=== PATIENT | female | born 1945 | race Caucasian/White ===

== ENCOUNTER 2018-04-06 09:25 | Outpatient (CLI) | payer MEDICARE, OTHER ==
[~2018-04-06 09:25] MED LIST: OXYC-134 PO
[2018-04-06 09:46] VITALS: BP 137/72
== END 2018-04-06 10:26 | disposition home or self-care (01) ==
LOC: ORTHO 09:25
PROVIDERS: ATTEND Nurse Practitioner Family
DX: S92.315A Nondisplaced fracture of first metatarsal bone, left foot, initial encounter for closed fracture (principal); S92.215A Nondisplaced fracture of cuboid bone of left foot, initial encounter for closed fracture; S92.002A Unspecified fracture of left calcaneus, initial encounter for closed fracture; Z88.0 Allergy status to penicillin; E78.00 Pure hypercholesterolemia, unspecified; E11.42 Type 2 diabetes mellitus with diabetic polyneuropathy; M81.0 Age-related osteoporosis without current pathological fracture; X58.XXXA Exposure to other specified factors, initial encounter; Y93.89 Activity, other specified; Y92.89 Other specified places as the place of occurrence of the external cause; Y99.8 Other external cause status
CPT/HCPCS: L4360

== ENCOUNTER 2018-04-20 09:05 | Outpatient (CLI) | payer MEDICARE, OTHER ==
[2018-04-20 09:14] VITALS: BP 151/76
== END 2018-04-20 09:45 | disposition home or self-care (01) ==
LOC: ORTHO 09:05
PROVIDERS: ATTEND Nurse Practitioner Family
DX: S92.325G Nondisplaced fracture of second metatarsal bone, left foot, subsequent encounter for fracture with delayed healing (principal); S92.215G Nondisplaced fracture of cuboid bone of left foot, subsequent encounter for fracture with delayed healing; S92.002G Unspecified fracture of left calcaneus, subsequent encounter for fracture with delayed healing; E78.00 Pure hypercholesterolemia, unspecified; E11.9 Type 2 diabetes mellitus without complications; Z88.0 Allergy status to penicillin; X58.XXXD Exposure to other specified factors, subsequent encounter
CPT/HCPCS: 73630; 73650; 99213

== ENCOUNTER 2018-05-12 13:32 | Outpatient (CLI) | payer MEDICARE, OTHER ==
[2018-05-12 13:39] VITALS: BP 147/74
== END 2018-05-12 14:45 | disposition home or self-care (01) ==
LOC: ORTHO 13:32
PROVIDERS: ATTEND Nurse Practitioner Family
DX: S92.335G Nondisplaced fracture of third metatarsal bone, left foot, subsequent encounter for fracture with delayed healing (principal); S92.325G Nondisplaced fracture of second metatarsal bone, left foot, subsequent encounter for fracture with delayed healing; S92.215G Nondisplaced fracture of cuboid bone of left foot, subsequent encounter for fracture with delayed healing; S92.002G Unspecified fracture of left calcaneus, subsequent encounter for fracture with delayed healing; E78.00 Pure hypercholesterolemia, unspecified; E11.610 Type 2 diabetes mellitus with diabetic neuropathic arthropathy; E11.42 Type 2 diabetes mellitus with diabetic polyneuropathy; M85.80 Other specified disorders of bone density and structure, unspecified site; M77.32 Calcaneal spur, left foot; Z88.0 Allergy status to penicillin; Z79.899 Other long term (current) drug therapy; Z79.84 Long term (current) use of oral hypoglycemic drugs; X58.XXXD Exposure to other specified factors, subsequent encounter
CPT/HCPCS: 73630

== ENCOUNTER → 2018-05-27 | Outpatient (CLI) | payer MEDICARE, OTHER ==
[2018-05-27 11:24] VITALS: BP 147/58
== END | disposition home or self-care (01) ==
LOC: ORTHO 11:25
PROVIDERS: ATTEND Nurse Practitioner Family
DX: S92.335D Nondisplaced fracture of third metatarsal bone, left foot, subsequent encounter for fracture with routine healing (principal); S92.325D Nondisplaced fracture of second metatarsal bone, left foot, subsequent encounter for fracture with routine healing; E78.00 Pure hypercholesterolemia, unspecified; E11.9 Type 2 diabetes mellitus without complications; Z88.0 Allergy status to penicillin; Z79.899 Other long term (current) drug therapy; Z98.84 Bariatric surgery status; X58.XXXD Exposure to other specified factors, subsequent encounter
CPT/HCPCS: 73630; 99213

== ENCOUNTER 2018-11-22 04:07 | Outpatient (CLI) | payer MEDICARE, OTHER | END 2018-11-22 23:59 | disposition home or self-care (01) | LOC: DIABETIC 04:07 | PROVIDERS: ATTEND Nurse Practitioner Family | DX: E11.65 Type 2 diabetes mellitus with hyperglycemia (principal); E11.40 Type 2 diabetes mellitus with diabetic neuropathy, unspecified; E11.21 Type 2 diabetes mellitus with diabetic nephropathy; E11.319 Type 2 diabetes mellitus with unspecified diabetic retinopathy without macular edema; E11.43 Type 2 diabetes mellitus with diabetic autonomic (poly)neuropathy; K31.84 Gastroparesis; I10 Essential (primary) hypertension; E78.5 Hyperlipidemia, unspecified; I67.9 Cerebrovascular disease, unspecified; Z88.0 Allergy status to penicillin; Z79.84 Long term (current) use of oral hypoglycemic drugs | CPT/HCPCS: G0108 ==

== ENCOUNTER 2019-01-03 00:51 | Outpatient (CLI) | payer MEDICARE, OTHER | END 2019-01-03 23:59 | disposition home or self-care (01) | LOC: DIABETIC 00:51 | PROVIDERS: ATTEND Nurse Practitioner Family | DX: E11.65 Type 2 diabetes mellitus with hyperglycemia (principal); E11.21 Type 2 diabetes mellitus with diabetic nephropathy; E11.40 Type 2 diabetes mellitus with diabetic neuropathy, unspecified; E11.319 Type 2 diabetes mellitus with unspecified diabetic retinopathy without macular edema; E11.43 Type 2 diabetes mellitus with diabetic autonomic (poly)neuropathy; K31.84 Gastroparesis; I67.9 Cerebrovascular disease, unspecified; I10 Essential (primary) hypertension; E78.5 Hyperlipidemia, unspecified | CPT/HCPCS: G0108 ==

== ENCOUNTER 2019-04-19 04:32 | Outpatient (CLI) | payer MEDICARE, OTHER | END 2019-04-19 23:59 | disposition home or self-care (01) | LOC: DIABETIC 04:32 | PROVIDERS: ATTEND Nurse Practitioner Family | DX: E11.65 Type 2 diabetes mellitus with hyperglycemia (principal); E11.40 Type 2 diabetes mellitus with diabetic neuropathy, unspecified; E11.21 Type 2 diabetes mellitus with diabetic nephropathy; E11.319 Type 2 diabetes mellitus with unspecified diabetic retinopathy without macular edema; E11.59 Type 2 diabetes mellitus with other circulatory complications; E11.43 Type 2 diabetes mellitus with diabetic autonomic (poly)neuropathy; K31.84 Gastroparesis; I10 Essential (primary) hypertension; E78.5 Hyperlipidemia, unspecified; Z79.84 Long term (current) use of oral hypoglycemic drugs; Z79.899 Other long term (current) drug therapy; Z88.0 Allergy status to penicillin | CPT/HCPCS: G0108 ==

== ENCOUNTER 2019-08-25 00:58 | Outpatient (CLI) | payer MEDICARE, OTHER | END 2019-08-25 23:59 | disposition home or self-care (01) | LOC: DIABETIC 00:58 | PROVIDERS: ATTEND Nurse Practitioner Family | DX: E11.65 Type 2 diabetes mellitus with hyperglycemia (principal); E11.319 Type 2 diabetes mellitus with unspecified diabetic retinopathy without macular edema; E11.40 Type 2 diabetes mellitus with diabetic neuropathy, unspecified; E11.21 Type 2 diabetes mellitus with diabetic nephropathy; E11.59 Type 2 diabetes mellitus with other circulatory complications; E11.43 Type 2 diabetes mellitus with diabetic autonomic (poly)neuropathy; K31.84 Gastroparesis; Z79.84 Long term (current) use of oral hypoglycemic drugs; Z79.899 Other long term (current) drug therapy; Z88.0 Allergy status to penicillin | CPT/HCPCS: G0108 ==

== ENCOUNTER 2019-12-01 01:40 | Outpatient (CLI) | payer MEDICARE, OTHER | END 2019-12-01 23:59 | disposition home or self-care (01) | LOC: DIABETIC 01:40 | PROVIDERS: ATTEND Family Medicine | DX: E11.9 Type 2 diabetes mellitus without complications (principal) | CPT/HCPCS: G0108 ==

== ENCOUNTER 2025-09-03 15:17 | Inpatient (IN) | payer MEDICARE, BC ==
[~2025-09-03] VITALS: Ht 167.6 cm; Wt 84.0 kg
[~2025-09-03 15:17] MED LIST changes: +ASCO500C18 PO; +CALC-331 PO; +CHOL50004 PO; +CYAN100019 PO; +LEVO750T68 PO; +LISI10TA27 PO; +MAGN400C PO; +METF-436 PO; +METH1CAP PO; +MULT-1085 PO; -OXYC-134 PO; +SERT-434 PO; +SIMV-342 PO; +[UNRECOGNIZED DRUG - CODE] PO
--- NOTE | 2025-09-03 15:41 | Physician Documentation ---
History of Present Illness ~ Chief Complaint: Mechanical Fall Stated Complaint: FALL Time Seen by MD: 15:28 Primary Medical Doctor: Scottie KEARNEY 79-year-old female, presenting with a fall She tells me that she tripped going up the steps. She did hit her head, but no loss of consciousness. She landed on her left leg, no reports severe pain in the left thigh. She is unable to move her leg or stand. She is not on blood thinners. She denies any neck pain, arm pain, or other associated injuries She does have numbness in her legs but states this is normal because she has neuropathy Tetanus within 5 Years?: No Medication Reconciliation Allergies: Coded Allergies: Penicillins (Unverified Allergy, Unknown, 05/11/18) Scheduled Ascorbic Acid (Vitamin C), 1 CAP PO DAILY, (Reported) Calcium Carbonate (Calcium), 1 TAB PO DAILY, (Reported) Cholecalciferol (Vitamin D3) (Vitamin D3), 1 CAP PO DAILY, (Reported) Cyanocobalamin (Vitamin B-12) (Vitamin B-12), 1 TAB PO DAILY, (Reported) Levofloxacin (Levofloxacin), 750 MG PO Q48H Lisinopril (Lisinopril), 1 TAB PO QPM, (Reported) Magnesium Oxide (Magnesium), 1 CAP PO DAILY, (Reported) Metformin Hcl (Metformin Hcl), 2 TAB PO Q12H, (Reported) Methyltetrahydrofolate Glucosa (Methylfolate), 400 MCG PO DAILY, (Reported) Multivitamin (Multi Vitamin Daily), 1 TAB PO DAILY, (Reported) Pyridoxine Hcl (Vitamin B-6), 1 TAB PO DAILY, (Reported) Sertraline HCl (Sertraline HCl), 1 TAB PO QPM, (Reported) Simvastatin (Zocor), 1 TAB PO QPM, (Reported) Past Medical History Past Medical History: High Cholesterol, Diabetes Past Surgical History: gastric bypass, orthopedic surgeries Alcohol Use: None Drug Use: none Lives with: Family Lives In: Home Occupation: retired Review of Systems Neurological: Denies: headache, dizziness Musculoskeletal: Reports: pain Physical Exam Vital Signs: Temperature: 97.6, Source: Temporal, Heart Rate: 68, Respiratory Rate: 15, BP: 145/62, Pulse Oximetry: 96, Weight: 84.000 Physical Exam General: This is an uncomfortable but very pleasant elderly woman HEENT: Atraumatic, no tenderness on palpation of the scalp, no hematoma or laceration, oropharynx is moist Neck: No midline tenderness on palpation of the C-spine Heart: Regular rate and rhythm, normal-appearing peripheral perfusion Lungs: normal work of breathing, normal oxygen saturation on room air Extremities: Warm and well-perfused No traumatic findings to the arms or right leg Left lower extremity: No shortening or rotation. The patient has severe pain with any movement of her femur including with hip rotation or flexion. She points to her proximal thigh. Mild generalized paresthesias to the left foot in his stocking-glove distribution. Normal-appearing perfusion Neuro: Alert and oriented Psychiatric: Calm and cooperative with exam Progress Results/Orders Results/Orders Orders - SANDRA SHORE MD Cbc/Diff (09/03/25 15:35) CMP (09/03/25 15:35) Pt Inr (09/03/25 15:35) Ct Head (09/03/25 15:35) Ct Pelvis (09/03/25 15:58) Page Hospitalist (09/03/25 16:20) Completed Orders - SANDRA SHORE MD Ct Head (09/03/25 15:35) Ondansetron Inj. (Zofran 4mg/2ml Vial) (09/03/25 15:40) Morphine 4mg/Ml Inj. (Morphine Inj.) (09/03/25 15:40) Ct Pelvis (09/03/25 15:58) Medications Received in ER Medications (Trade) Dose Ordered Sig/Sergey Route PRN Reason Start Time Stop Time Status Last Admin Dose Admin (Zofran 4mg/2ml vial) 4 mg ONCE ONCE IV 09/03/25 15:40 09/03/25 15:44 DC 09/03/25 15:46 4 MG (morphine inj.) 4 mg ONCE ONCE IV 09/03/25 15:40 09/03/25 15:41 DC 09/03/25 15:47 4 MG Vital Signs 09/03/25 09/03/25 09/03/25 15:20 15:28 15:47 Temp 97.6 Pulse 84 68 Resp 15 15 15 B/P (MAP) 137/83 145/62 (89) Pulse Ox 97 96 EKG/XRAY/CT/US/VASC/MRI CT : Impression I personally interpreted the CT scan, and this shows no acute hemorrhage in the head CT CT pelvis: I personally interpreted the CT scan, and this shows a left femoral neck hip fracture Consults/PCP Consults/PCP : Additional Comment Consult: I spoke to Dr. Alvarado, orthopedics, for evaluation and surgical intervention Consult: I spoke to the internal medicine service, for admission in the hospital Medical Decision Making Additional information obtaine: N/A Findings na Differential Dx:Considerations: Include: Closed head injury, Fracture(s), Contusion(s), Hematoma(s) Additional Comment The patient presents with a fall. She did hit her head but has no evidence of significant head injury. Her primary pain is in the left thigh. Her exam is concerning for a likely fracture. An IV was established and she was given pain and nausea medications. Head CT without hemorrhage. CT of the pelvis shows a hip fracture. Orthopedics team consulted. Preop labs were obtained. She will be admitted to the medicine service. Departure Impression: Primary Impression: Ground-level fall Additional Impressions: Closed head injury Closed left hip fracture Referrals: NO PRIMARY CARE PROVIDER (PCP) Signature Scribe Signature: na Attestation: SANDRA Burkett MD Sep 03, 2025 15:41
[2025-09-03] MEDS: ondansetron/PF 4mg/2ml inj IV ONE (15:46)
[2025-09-03] MEDS: morphine 4 MG/ML inj SYRINge IV ONE (15:47)
--- NOTE | 2025-09-03 16:19 | RADIOLOGY REPORT ---
CT CT HEAD INDICATION: fall, head inj EXAM DATE: 09/03/2025 03:50 PM COMPARISON: None RADIATION DOSE: CTDIvol: 51 mGy, DLP: 1030 mGy*cm PROCEDURE: CT scans of the head were obtained from the vertex to the skull base. Sagittal and coronal reconstructions were provided. All CT scans at this medical facility are performed using dose modulation techniques as appropriate to a performed exam including the following: Automated exposure control was utilized; adjustment of the MA and/or KV according to patient size; and use of iterative reconstruction technique. FINDINGS: There is sulcal and ventricular prominence. The brainshows normal morphology and elmore-white matter differentiation, without intracranial hemorrhage, extra-axial fluid collection, mass effect or acute large vessel infarct. The ventricles are normal in size. The basal cisterns are patent. The skull and visible facial bones are intact. The paranasal sinuses, mastoid air cells and middle ear cavities are well-aerated. The soft tissues of the scalp are unremarkable. IMPRESSION: No acute intracranial abnormality.
--- NOTE | 2025-09-03 16:32 | RADIOLOGY REPORT ---
History: fall, left hip/femur pain Comparison Study: None Technique: Multidetector spiral CT of the pelvis was performed from iliac crests to pubic symphysis. 100 cc of intravenous contrast was administered during this examination. Portal venous imaging was obtained. Axial, coronal and sagittal multiplanar reformats were performed by the technologist on a separate workstation. Radiation Dose : CT Dose: CTDI volume is 34 mGy. Dose-length product is 1355 mGy*cm Findings: Visualized bowel: Small bowel and colon are normal in caliber and distribution. The appendix is not visualized; however, no secondary findings of acute appendicitis identified. Moderate to large colonic stool burden. Ascites: Absent Lymphadenopathy: No pelvic or mesenteric lymphadenopathy. Pelvis Wall and Mesentery: Unremarkable. Vasculature: The visualized abdominal aorta is normal in size and caliber. Abdominal and pelvic vessels demonstrate normal enhancement. Pelvic Organs: Unremarkable Musculoskeletal: Mildly displaced acute traumatic fracture of the left intertrochanteric femur. Chronic deformities of the right superior pubic rami and right inferior pubic rami. Bladder: Unremarkable IMPRESSION: 1. Mildly displaced acute traumatic fracture of the left intertrochanteric femur. END IMPRESSION:
[2025-09-03 16:37] LABS: MEAN PLATELET VOLUME 8.4 FL (7.4-10.4); RED CELL DISTRIBUTION WIDTH 18.4 % (11.5-14.5)
[2025-09-03 16:39] LABS: INR 1.1 INR
[2025-09-03 16:43] LABS: CREATININE 1.19 MG/DL (0.40-0.90); TOTAL CARBON DIOXIDE 26.4 MMOL/L (24-32); eCRCL 35 ML/MIN; eGFR 44 ML/MIN
[2025-09-03] MEDS ORDERED: magnesium sulf-water 4G/100mL 100 ML IV PRN (17:10)
[2025-09-03] MEDS ORDERED: mag hydrox/Alum hydrox/simeth 30ml oral suspension PO PRN (17:10)
[2025-09-03] MEDS ORDERED: magnesium hydroxide 30ml (MOM) UD suspension PO PRN (17:10)
[2025-09-03] MEDS ORDERED: ondansetron/PF 4mg/2ml inj IV PRN (17:10)
[2025-09-03] MEDS ORDERED: magnesium Cl slow-release 64mg tablet PO PRN (17:10)
[2025-09-03] MEDS ORDERED: potassium Cl 40MEQ/1/2NS 520ml 520 ML IV PRN (17:10)
[2025-09-03] MEDS ORDERED: magnesium sulf-water 2g/50mL 50 ML IV PRN (17:10)
[2025-09-03] MEDS: normal saline 1000ml 1,000 ML IV SCH (17:10)
[2025-09-03] MEDS ORDERED: potassium Cl 20 mEq SR tablet PO PRN ×2 (17:10)
[2025-09-03 17:47] LABS: PHOSPHORUS 3.9 MG/DL (2.3-4.5); PRO BRAIN NATRIURETIC PEPTIDE 2392 PG/ML (0-450)
[2025-09-03 18:00] VITALS: BP 136/65; PULSE 83; RESP 16; TEMP 98.1; O2SAT 95
--- NOTE | 2025-09-03 18:00 | HISTORY AND PHYSICAL-Residence ---
History & Physical Providers to CC Resident Creating Document: JASON TORRES, RES ~ History of Present Illness Primary Medical Doctor: Scottie Reason for Admit\Complaint: Hip fracture History of Present Illness This is an 79-year-old female with a history of hypertension, diabetes mellitus, hyperlipidemia, peripheral neuropathy came to the ER after she had a ground level fall. Today she visited her friend's house and has climbed the stairs and after climbing in the last step she thinks she might have her food and had a ground level fall, post the fall she had severe pain in her left leg and could not know. She did not lose consciousness. She did hit her head at the time of fall. She denies any chest pain, palpitations, lightheadedness or dizziness. She denies any fever, vomiting, diarrhea, burning sensation in the urine. She is not on any blood thinners. Patient reports having history of neuropathy with numbness in her foot and thinks the fall could be secondary to that. Allergies: Coded Allergies: Penicillins (Unverified Allergy, Unknown, 05/11/18) pioglitazone (Verified Allergy, Unknown, 09/03/25) Home Medications Home Medications Active Levofloxacin 750 Mg Tablet 750 Mg PO Q48H 7 Days Reported Methylfolate (Methyltetrahydrofolate Glucosa) 680 Mcg Dfe Capsule 400 Mcg PO DAILY Magnesium (Magnesium Oxide) 400 Mg Capsule 1 Cap PO DAILY Zocor (Simvastatin) 20 Mg Tablet 1 Tab PO QPM Calcium (Calcium Carbonate) 500 Mg Tablet 1 Tab PO DAILY Multi Vitamin Daily (Multivitamin) 1 Each Tablet 1 Tab PO DAILY Vitamin D3 (Cholecalciferol (Vitamin D3)) 125 Mcg Capsule 1 Cap PO DAILY Vitamin C (Ascorbic Acid) 500 Mg Capsule.er 1 Cap PO DAILY Vitamin B-6 (Pyridoxine Hcl) 100 Mg Tablet 1 Tab PO DAILY Vitamin B-12 (Cyanocobalamin (Vitamin B-12)) 1,000 Mcg Tablet 1 Tab PO DAILY Metformin Hcl 500 Mg Tablet 2 Tab PO Q12H Lisinopril 10 Mg Tablet 1 Tab PO QPM Sertraline HCl 100 Mg Tablet 1 Tab PO QPM Past Medical History Past Medical History Hypertension Diabetes mellitus Peripheral neuropathy Hyperlipidemia Past Surgical History Surgical History Comment Gastric bypass surgery History of right femur fracture. Past Social History Social History Comment Denies any history of smoking, alcohol, drug use She lives alone at home and is functionally independent. She uses a cane and a walker to move around. Smoking: Non-Smoker Alcohol Use: None Drug Use: None Lives with: Family Lives In: Home Occupation: retired ROS Constitutional: Denies: no symptoms reported, see HPI, chills, diaphoresis, fever, malaise, weakness, other Eyes: Denies: no symptoms reported, see HPI, pain, discharge, blurred vision, double vision, itching, photophobia, redness, tearing, other ENT: Denies: no symptoms reported, see HPI, ear pain, ear bleeding, ear discharge, hearing loss, ear ringing, nose pain, nose bleeding, nose congestion, nose discharge, throat pain, throat swelling, voice change, mouth pain, mouth bleeding, mouth swelling, other Respiratory: Denies: no symptoms reported, see HPI, cough, orthopnea, shortness of breath, SOB with exertion, SOB at rest, stridor, wheezing, hemoptysis, pain with breathing, other Cardiovascular: Denies: no symptoms reported, see HPI, chest pain, left arm pain, diaphoresis, lightheadedness, syncope, edema, palpitations, irregular heart rate, other Gastrointestinal: Denies: no symptoms reported, see HPI, abdomen distended, abdominal pain, nausea, vomiting, diarrhea, constipated, melena, hematemesis, hematochezia, rectal bleeding, rectal pain, dysphagia, poor appetite, poor fluid intake, other Genitourinary: Denies: no symptoms reported, see HPI, burning, discharge, dysuria, frequency, flank pain, hematuria, incontinence, pain, decreased urine output, urgency, other Neurological: Denies: no symptoms reported, see HPI, speech problem, headache, dizziness, fainting, tingling, left sided numbness, right sided numbness, left sided weakness, right sided weakness, problems walking, unable to move lower ext, unable to move upper ext, petit mal seizures, tonic-clonic seizures, cognitive dysfunction, other Musculoskeletal: Reports: pain Exam Vitals: Vital Signs Date Time Temp Pulse Resp B/P (MAP) Pulse Ox O2 Delivery O2 Flow Rate FiO2 09/03/25 17:11 15 09/03/25 15:28 68 96 09/03/25 15:20 97.6 General: Awake , alert, and oriented x4, in mild distress because of pain HEENT: Atraumatic, normocephalic, EOMI, anicteric sclera ; pink conjunctiva Neck: Trachea midline. Supple, full range of motion, no JVD Cardiac: Regular rhythm, regular rate with no murmurs all over the precordium. Respiratory: Bilateral breath sounds are clear. Gastrointestinal: Abdomen symmetric, non-distended, soft, non-tender, normal bowel sounds x4 quadrant, normoactive, no hepatosplenomegaly Musculoskeletal: No pedal edema, no cyanosis, peripheral pulses felt Neurological: Mental status exam: alert and consciousness, orientation, memory, speech No focal neurological deficits Left. Lower extremity-able to move toes, 1+ pitting edema, Skin: Warm and dry Diagnostic Data Last Recorded Lab Results: 09/03/25 1622 09/03/25 1622 Diagnostic Data: Laboratory Tests Test 09/03/25 16:22 Prothrombin Time 10.8 SECONDS (9.0-12.0) INR International Normalized Ratio 1.1 INR Coagulation Comments Advance Care Planning Advanced Care plannin - 30 Minutes (I spent 17 minutes in discussing various resuscitative measures, the patient chose to be full code.) Additional Plan Assessment This is an 79-year-old female with a history of hypertension, hyperlipidemia, diabetes mellitus, peripheral neuropathy came to the ER acetazolamide level fall with a left intertrochanteric hip fracture. Dr. Gaona has been consulted, patient will be taken for surgery tomorrow. Plan Ground level fall Left intertrochanteric femur fracture Pelvic CT showed left intertrochanteric femur fracture. Pain management-morphine p.r.n. NS@ 100 mL/hour Regular diet, NPO after midnight Patient will be getting Elizabeth's traction. Dr. Alvarado has been consulted, we will be taken to surgery tomorrow Microcytic hypochromic anemia Hemoglobin is 8.8 Iron panel ordered Stool occult blood ordered. Hyperkalemia Mild TIBURCIO Creatinine 1.19, BUN 34 Potassium is 5.2 One dose of Kayexalate ordered. Follow up with repeat labs. Elevated proBNP No history of heart failure Patient isn't fluid overloaded Echocardiogram ordered. Type 2 diabetes mellitus Hypertension Hyperlipidemia A1c 6.3 Patient's home medication include lisinopril 10 mg and simvastatin. Code status: Full code DVT prophylaxis: None Diet: Regular diet, NPO after midnight Pravahika Priyanka M.D PGY2 Date of Service: Sep 03, 2025 Billing Provider: KIAH APARICIO MD Common Visit Codes: 63529-MWVMNCN INP/OBS CARE (HIGH) Secondary Visit Codes: 89990-TTHWYOPT CARE PLAN 30 MINUTES JASON TORRES, RES Sep 03, 2025 18:00 KIAH APARICIO MD Sep 05, 2025 06:53
[2025-09-03] MEDS: sodium polystyrene sulfonate 15gm/60ml oral suspension PO ONE (18:10)
[2025-09-03 19:00] VITALS: BP 136/65; PULSE 83; RESP 16; TEMP 98.1; O2SAT 95
[2025-09-03] MEDS: K and/or MAG REPLACEMENT MC SCH (20:00)
[2025-09-03] MEDS: docusate sod 100mg capsule PO SCH (20:00)
[2025-09-03 21:40] LABS: % IRON SATURATION 6 % (11-46)
[2025-09-03 22:00] VITALS: BP 134/70; PULSE 80; RESP 16; TEMP 98.5; O2SAT 96
[2025-09-04] VITALS (23 sets, daily range): BP systolic 100–145; BP diastolic 44–100; PULSE 71–93; RESP 12–22; TEMP 98–99.2; O2SAT 0–100
--- NOTE | 2025-09-04 05:39 | ELECTROCARDIOGRAPH REPORT ---
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 Marino Leon Measurements Intervals Ava Rate: 82 P: 187 NM: 191 QRS: -54 QRSD: 98 T: 48 QT: 385 QTc: 450 Interpretive Statements Sinus or ectopic atrial rhythm LAD, consider left anterior fascicular block RSR' in V1 or V2, probably normal variant Electronically Signed On 09-04-2025 6:45:[address] Marino Leon Please click the below link to view image of tracing.
[2025-09-04 06:44] LABS: CHOL/HDL RATIO 2.9 (0.00-4.99); CREATININE 1.11 MG/DL (0.40-0.90); LDL CHOLESTEROL 109 MG/DL (50-100); MEAN PLATELET VOLUME 8.5 FL (7.4-10.4); RED CELL DISTRIBUTION WIDTH 18.4 % (11.5-14.5); TOTAL CARBON DIOXIDE 20.9 MMOL/L (24-32); eCRCL 37 ML/MIN; eGFR 47 ML/MIN
[2025-09-04] MEDS ORDERED: fentaNYL/PF 50MCG/1 ML 2ML syringe ONE (07:04)
[2025-09-04] MEDS ORDERED: propofol inj 20 ML IV ONE (07:05)
[2025-09-04] MEDS: vancomycin/NS 1 GM ADD-VANTAGE 250 ML IV STA (07:23)
--- NOTE | 2025-09-04 07:24 | RADIOLOGY REPORT ---
CHEST RADIOGRAPH Indication: PRE-OP Technique: Single frontal view of the chest was obtained COMPARISON: CHEST,SINGLE VIEW on DOS: 09/12/22, CHEST,SINGLE VIEW on DOS: 09/11/22, CHEST,SINGLE VIEW on DOS: 09/10/22, CHEST,SINGLE VIEW on DOS: 09/09/22, CHEST,SINGLE VIEW on DOS: 09/08/22 FINDINGS: Lines and Tubes: None Lungs: Clear Pleura: No effusion. No pneumothorax. Cardiomediastinal contours: Unremarkable Bones: Unremarkable IMPRESSION: No acute disease.
[2025-09-04] MEDS ORDERED: fentaNYL/PF 50MCG/1 ML 2ML syringe IV PRN ×2 (07:40)
[2025-09-04] MEDS ORDERED: HYDROmorphone/PF 0.2 MG/ML SYRINGE IV PRN (07:40)
[2025-09-04] MEDS: ringers solution, lacted 1,000 ML IV SCH (07:40)
[2025-09-04] MEDS ORDERED: labetalol 20mg/4ml (5mg/ml) syringe IV PRN (07:40)
[2025-09-04] MEDS ORDERED: hydrALAZINE 20mg/ml inj. IV PRN (07:40)
[2025-09-04] MEDS ORDERED: ondansetron/PF 4mg/2ml inj IV PRN (07:40)
[2025-09-04] MEDS ORDERED: ePHEDrine 50MG/ML INJ. ONE (08:29)
--- NOTE | 2025-09-04 08:47 | CONSULTATION REPORT ---
History of Present Illness Providers to CC ~ Reason for Admit\Admit Dx: Hip fracture Refering MD: Scottie History of Present Illness Orthopedic consult 09/04/2025. 79-year-old female suffered a ground level fall at her friend's home climbing down steps sustaining injury to her left hip was unable to ambulate severe left hip pain brought to the emergency room via ambulance workup revealed a intertrochanteric left hip fracture with some mild displacement. There was no other complaints of pain besides her hip pain history of loss of consciousness. Past medical history see in the history and physical. Patient is not on anticoagulation medication. Orthopedic examination reveals significant pain with mild rotational deformity of her left hip skin is intact was no ecchymosis good distal pulses well-healed incisions to both of her knees for knee replacements which were stable without acute injury no upper extremity injuries. X-rays: These reveal a two part intertrochanteric hip fracture left hip. Assessment: Unstable left intertrochanteric hip fracture. Plan this will require surgical stabilization of the fracture nail and compression screw. I discussed with the patient the indications risks benefits potential limitations and complications of the surgery. He is well aware of the surgery having had a intramedullary kalyan for femur fracture on her right side in the past. Having achieved her consent we and consents were signed I signed her left leg she was given prophylactic antibiotics and placed in the OR schedule. Thank you for the consultation Allergies: Coded Allergies: Penicillins (Unverified Allergy, Unknown, 05/11/18) pioglitazone (Verified Allergy, Unknown, 09/03/25) Home Medications Home Medications Active Reported Methylfolate (Methyltetrahydrofolate Glucosa) 680 Mcg Dfe Capsule 400 Mcg PO DAILY Magnesium (Magnesium Oxide) 400 Mg Capsule 1 Cap PO DAILY Zocor (Simvastatin) 20 Mg Tablet 1 Tab PO QPM Calcium (Calcium Carbonate) 500 Mg Tablet 1 Tab PO DAILY Multi Vitamin Daily (Multivitamin) 1 Each Tablet 1 Tab PO DAILY Vitamin D3 (Cholecalciferol (Vitamin D3)) 125 Mcg Capsule 1 Cap PO DAILY Vitamin C (Ascorbic Acid) 500 Mg Capsule.er 1 Cap PO DAILY Vitamin B-6 (Pyridoxine Hcl) 100 Mg Tablet 1 Tab PO DAILY Vitamin B-12 (Cyanocobalamin (Vitamin B-12)) 1,000 Mcg Tablet 1 Tab PO DAILY Metformin Hcl 500 Mg Tablet 2 Tab PO Q12H Lisinopril 10 Mg Tablet 1 Tab PO QPM Sertraline HCl 100 Mg Tablet 1 Tab PO QPM Physical Exam Last Vital Signs Recorded: Temperature: 98.8, Source: Oral, Heart Rate: 71, Respiratory Rate: 18, BP: 128/60, Pulse Oximetry: 96, Weight: 84.000 Results Diagram Lab Result Diagram: 09/04/25 0448 09/04/25 0448 LEONID STANTON MD Sep 04, 2025 08:47
--- NOTE | 2025-09-04 08:53 | OPERATIVE REPORT ---
Operative Report Providers to CC ~ Date of Procedure: Sep 04, 2025 Pre-Operative Diagnosis: Left intertrochanteric hip fracture two part Post-Operative Diagnosis SAME as PRE-Op Procedure Performed Intramedullary fracture nail with hip compression screw for an open reduction internal fixation Surgeon: Leonid Stanton MD In Flight Refueling Craftsman None Anesthesiologist: Viktor Hall Type of Anesthesia: General Findings: Two part intertrochanteric hip fracture unstable Complications None Prosthetics\Implants used: [place] affixus fracture nail short 11 mm x 180 mm 130 with 110 mm sliding compression screw and a 40 mm distal locking screw Estimated Blood Loss: 100 cc Specimen Removed: None Description of Procedure: Patient was taken to the operating room after obtained informed consents she was given prophylactic intravenous antibiotics given a general anesthetic on the Aurora table which was then placed in traction. Fracture was reduced under C-arm fluoroscopy by va and the hip was prepped and draped in usual sterile orthopaedic fashion using a vertical isolation drape. Surgical time-out was taken and the case was begun. Lateral incisions were made proximal incision proximal of the greater trochanter measuring approximately 2-3 inches was made dissection was then carried through the subcutaneous tissue guide pin was placed over the tip of the greater trochanter and inserted into the medullary canal or fluoroscopic guidance. Starting Reamer was used to drill the entry hole for the to the greater troch after this was completed the intramedullary nail was advanced over a guidewire into the hip without difficulty. Using the external alignment guide the hip compression guide pin was placed in the central aspect of the femoral head under fluoroscopic guidance this was now drilled in preparation for the compression screw which was measured to be 110 mm once this was applied the distal locking screw was now placed using the external alignment system and this is 40 mm in length. Multiple angles were used to ensure that hardware was placed in anatomically correct positions. The fracture seems stable retraction had been released prior to distal locking. All three incisions were irrigated with an Aricept antiseptic solution hemostasis was achieved with electrocautery subcuticular closure was accomplished with 2-0 Vicryl the skin was closed with skin justino and sealed with silk dressing in covered with island dressings. The patient was now ext ubated and transferred to the [facility] and recovery room in stable condition needle and sponge count was reported to be correct good distal pulses and capillary refill the feet were maintained. Counts repoted as correct: Yes LEONID STANTON MD Sep 04, 2025 08:53
[2025-09-04] MEDS: acetaminophen 1,000mg/100ml IV 100 ML IV PRN (09:14)
--- NOTE | 2025-09-04 17:19 | CARDIOLOGY REPORT ---
APPROVED REPORT EXAM: Comprehensive 2D, Doppler, and color-flow Echocardiogram. Patient Location: 359 B Blood Pressure: 129/62 mmHg Heart Rate: 83 bpm Rhythm: SINUS Indications CARDIOMYOPATHY DIABETES MELLITUS HYPERTENSION Therapy Coordinator: none Previous echo: none 2D Dimensions RVDd 3.5 cm LA Diam 6.4 cm IVSd 1.0 (0.7-1.1cm) LVDd 4.0 cm PWd 1.0 (0.7-1.1cm) RA Major 5.4 cm IVSs 1.4 (0.8-1.2cm) RA Minor 4.1 cm LVDs 2.5 (2.5-4.0cm) PWs 1.4 (0.8-1.2cm) LVOT Diameter 1.93 (1.8-2.4cm) LVEF(%) 69.3 (>50%) Ao Asc Diam. 3.70 cm FS (%) 38.5 % SV 48.7 ml CO 4.0 L/min M-Mode Dimensions Left Atrium(MM) 4.29 (2.5-4.0cm) Aortic Root 2.95 (2.2-3.7cm) Aortic Cusp Exc 1.82 (1.5-2.0cm) MV EPSS 0.3 (<0.5cm) Biplane 2D LA Volumes LA ESV Index 45.89 mL/m2 Aortic Valve AoV Peak Floyd. 187.4 cm/s AoV VTI 35.8 cm AO Peak GR. 14.0 mmHg AO Mean GR. 8 mmHg LVOT VTI 28.33 cm LVOT Peak Floyd. 136.8 cm/s MANUEL(VTI)/BSA 2.31 cm2/m2 MANUEL (VTI) 2.31 cm2 AV DI 0.79 % Mitral Valve MV Peak Gr. 10 mmHg MV Mean Gr. 3 mmHg MV PHT 80 ms MVA (PHT) 2.75 cm2 MV VMax 154.8 cm/s MV VMean 70.2 cm/s MVA VTI 2.92 cm2 MV VTI 28.4 cm Tricuspid Valve TR P. Velocity 416 cm/s RAP ESTIMATE 10 mmHg TR Peak Gr. 69 mmHg RVSP 79 mmHg LEFT VENTRICLE Normal LV size and wall thickness. Overall systolic function is normal. LVEF is 65-70%. RIGHT VENTRICLE RV is mildly dilated in size with normal function. RVSP is estimated at 79 mmHg. ATRIA Left atrium is severely dilated. Right atrium is moderately dilated. AORTIC VALVE Trileaflet AV appears mildly sclerotic without stenosis. Trace insufficiency. MITRAL VALVE Moderate MV annular calcification without stenosis. Trace regurgitation. TRICUSPID VALVE TV appears structurally normal with mild regurgitation. PULMONIC VALVE Normal PV without stenosis, physiologic insufficiency. GREAT VESSELS Aortic root is normal in size. Ascending aorta is normal in size. PERICARDIUM Normal pericardium. No effusion. Other Information Study Quality: Adequate Conclusion Normal LV size and wall thickness. Overall systolic function is normal. LVEF is 65-70%. RV is mildly dilated in size with normal function. RVSP is estimated at 79 mmHg. Left atrium is severely dilated. Right atrium is moderately dilated. Trileaflet AV appears mildly sclerotic without stenosis. Trace insufficiency. Moderate MV annular calcification without stenosis. Trace regurgitation. TV appears structurally normal with mild regurgitation. Normal pericardium. No effusion.
[2025-09-04] MEDS ORDERED: sodium polystyrene sulfonate 15gm/60ml oral suspension PO ONE (18:35)
--- NOTE | 2025-09-04 18:38 | PROGRESS NOTE- Residence ---
Progress Note - Resident Providers to CC Resident Creating Document: JASON TORRES RES ~ Antibiotic Timeout Antibiotic Ordered?: No Subjective Patient was seen and examined at the bedside today. Status post intramedullary fracture nail with a hip compression screw for open reduction internal fixation. Post surgery patient is comfortable with some pain. Objective Vital Signs Date Time Temp Pulse Resp B/P (MAP) Pulse Ox O2 Delivery O2 Flow Rate FiO2 09/04/25 13:45 98.2 86 16 100/44 (62) 94 Nasal Cannula 3.0 09/03/25 19:00 21 Result Diagram: 09/05/25 0453 09/05/25 0453 Awake , alert, and oriented x4 appears comfortable. HEENT: Atraumatic, normocephalic, EOMI, anicteric sclera ; pink conjunctiva Neck: Trachea midline. Supple, full range of motion, no JVD Cardiac: Regular rhythm, regular rate with no murmurs all over the precordium. Respiratory: Bilateral breath sounds are clear. Gastrointestinal: Abdomen symmetric, non-distended, soft, non-tender, normal bowel sounds x4 quadrant, normoactive, no hepatosplenomegaly Musculoskeletal: No pedal edema, no cyanosis, peripheral pulses felt Neurological: Mental status exam: alert and consciousness, orientation, memory, speech No focal neurological deficits Left. Left lower extremity status post open reduction internal fixation. Skin: Warm and dry Coagulation Studies Laboratory Tests Test 09/03/25 16:22 Prothrombin Time 10.8 SECONDS (9.0-12.0) INR International Normalized Ratio 1.1 INR Coagulation Comments Plan Plan Assessment This is an 79-year-old female with a history of hypertension, hyperlipidemia, diabetes mellitus, peripheral neuropathy came to the ER acetazolamide level fall with a left intertrochanteric hip fracture. Dr. Gaona has been consulted, patient will be taken for surgery tomorrow. Plan Ground level fall Left intertrochanteric femur fracture s/p open reduction internal fixation by Dr. Alvarado on 09/04/2025, PO2 [address] showed left intertrochanteric femur fracture. Pain management-morphine p.r.n. Regular diet initiated, no nausea or vomiting. Microcytic hypochromic anemia Hemoglobin is 10.0 Iron panel low iron, high TIBC, low % saturation, ferritin 17 Started on oral iron supplementation. Hyperkalemia Mild TIBURCIO Creatinine 1.19, BUN 34 Potassium is 5.2 One dose of Kayexalate ordered. Follow up with repeat labs. Elevated proBNP No history of heart failure Patient isn't fluid overloaded Echocardiogram showed normal wall size and thickness, normal systolic function, ejection fraction 65-70%, RVSP 79 Type 2 diabetes mellitus Hypertension Hyperlipidemia A1c 6.3 Home medication lisinopril as the blood pressure is in the borderline normal range. Code status: Full code DVT prophylaxis: Heparin Diet: Regular diet. Disposition: Possible discharge to rehab Jason Torres M.D PGY2 Addendum chr cor pulmonale, dc iv fluids, po lasix Date of Service: Sep 04, 2025 Billing Provider: KIAH APARICIO MD Common Visit Codes: [id number] INP/OBS CARE(HIGH) JASON TORRES, RES Sep 04, 2025 18:38 KIAH APARICIO MD Sep 05, 2025 06:55
[2025-09-04] MEDS: iron polysaccharide complex 150mg capsule PO SCH (21:38)
[2025-09-04] MEDS: heparin, porcine 5000 units/ml vial SQ SCH (21:39)
[2025-09-05] VITALS (7 sets, daily range): BP systolic 106–125; BP diastolic 48–56; PULSE 14–95; RESP 14–18; TEMP 98.1–99.9; O2SAT 93–97
[2025-09-05 06:05] LABS: MEAN PLATELET VOLUME 8.8 FL (7.4-10.4); RED CELL DISTRIBUTION WIDTH 18.6 % (11.5-14.5)
[2025-09-05 06:09] LABS: CREATININE 1.26 MG/DL (0.40-0.90); TOTAL CARBON DIOXIDE 22.4 MMOL/L (24-32); eCRCL 33 ML/MIN; eGFR 41 ML/MIN
[2025-09-05 16:34] LABS: MEAN PLATELET VOLUME 9.0 FL (7.4-10.4); RED CELL DISTRIBUTION WIDTH 18.5 % (11.5-14.5)
--- NOTE | 2025-09-05 16:59 | PROGRESS NOTE- Residence ---
Progress Note - Resident Providers to CC Resident Creating Document: JASON TORRES RES ~ Antibiotic Timeout Antibiotic Ordered?: No Subjective Patient was seen and examined at the bedside today. Status post intramedullary fracture nail with a hip compression screw for open reduction internal fixation. Patient reports pain on moving. Her hemoglobin dropped from 10.0-7.3. No signs of hematoma. Objective Vital Signs Date Time Temp Pulse Resp B/P (MAP) Pulse Ox O2 Delivery O2 Flow Rate FiO2 09/05/25 11:24 16 09/05/25 10:09 98.1 14 125/52 (76) 94 Nasal Cannula 2.0 09/03/25 19:00 21 Result Diagram: 09/05/25 1559 09/05/25 0453 Awake , alert, and oriented x4 appears comfortable. HEENT: Atraumatic, normocephalic, EOMI, anicteric sclera ; pink conjunctiva Neck: Trachea midline. Supple, full range of motion, no JVD Cardiac: Regular rhythm, regular rate with no murmurs all over the precordium. Respiratory: Bilateral breath sounds are clear. Gastrointestinal: Abdomen symmetric, non-distended, soft, non-tender, normal bowel sounds x4 quadrant, normoactive, no hepatosplenomegaly Musculoskeletal: No pedal edema, no cyanosis, peripheral pulses felt Neurological: Mental status exam: alert and consciousness, orientation, memory, speech No focal neurological deficits Left. Left lower extremity status post open reduction internal fixation. Skin: Warm and dry Coagulation Studies Laboratory Tests Test 09/03/25 16:22 Prothrombin Time 10.8 SECONDS (9.0-12.0) INR International Normalized Ratio 1.1 INR Coagulation Comments Plan Plan Assessment This is an 79-year-old female with a history of hypertension, hyperlipidemia, diabetes mellitus, peripheral neuropathy came to the ER acetazolamide level fall with a left intertrochanteric hip fracture. Dr. Gaona has been consulted, patient will be taken for surgery tomorrow. Plan Ground level fall Left intertrochanteric femur fracture s/p open reduction internal fixation by Dr. Alvarado on 09/04/2025, POD1 Pelvic CT showed left intertrochanteric femur fracture. Pain management-morphine p.r.n. , tramadol p.r.n. Regular diet initiated, no nausea or vomiting. No bowel movement yet. Acute blood loss anemia Hemoglobin dropped from 10.0-7.3 and then to 7.1 No signs of hematoma on examination. Iron panel low iron, high TIBC, low % saturation, ferritin 17 Started on oral iron supplementation. Repeat H&H in 5 hours, Blood transfusion if HGB <7 Hyperkalemia- improved Mild TIBURCIO likely secondary to renal tubular stasis Creatinine 1.26 Follow up with repeat labs. Elevated proBNP No history of heart failure Patient isn't fluid overloaded Echocardiogram showed normal wall size and thickness, normal systolic function, ejection fraction 65-70%, RVSP 79 Type 2 diabetes mellitus Hypertension Hyperlipidemia A1c 6.3 Home medication lisinopril as the blood pressure is in the borderline normal range. Code status: Full code DVT prophylaxis: Heparin Diet: Regular diet. Disposition: Possible discharge to rehab Jason Torres M.D PGY2 Date of Service: Sep 05, 2025 Billing Provider: KIAH APARICIO MD Common Visit Codes: [id number] INP/OBS CARE(HIGH) JASON TORRES, RES Sep 05, 2025 16:59 KIAH APARICIO MD Sep 06, 2025 06:45
[2025-09-05] MEDS: magnesium hydroxide 30ml (MOM) UD suspension PO SCH (19:18)
[2025-09-05 21:09] LABS: MEAN PLATELET VOLUME 8.2 FL (7.4-10.4); RED CELL DISTRIBUTION WIDTH 18.9 % (11.5-14.5)
[2025-09-06] VITALS (14 sets, daily range): BP systolic 77–125; BP diastolic 29–74; PULSE 79–102; RESP 16–21; TEMP 97.5–99; O2SAT 92–97
[2025-09-06 05:58] LABS: MEAN PLATELET VOLUME 8.9 FL (7.4-10.4); RED CELL DISTRIBUTION WIDTH 18.6 % (11.5-14.5)
[2025-09-06 06:01] LABS: CREATININE 1.23 MG/DL (0.40-0.90); TOTAL CARBON DIOXIDE 22.9 MMOL/L (24-32); eCRCL 34 ML/MIN; eGFR 42 ML/MIN
[2025-09-06] MEDS: bisacodyl 10mg suppository rectal RC PRN (08:07)
[2025-09-06 08:41] LABS: NEUTROPHILS % (MANUAL) 78 % (42-75)
[2025-09-06 08:42] LABS: EOSINOPHILS % (MANUAL) 2 % (0-6); LYMPHOCYTES % (MANUAL) 15 % (21-51); MONOCYTES % (MANUAL) 5 % (2-12); PLATELET ESTIMATE DECREASED
[2025-09-06 08:43] LABS: ELLIPTOCYTES 1+
[2025-09-06] MEDS ORDERED: normal saline 1000ML IV soln IV ONE (10:40)
[2025-09-06 11:00] LABS: OCCULT BLOOD STOOL NEGATIVE (Neg)
[2025-09-06] MEDS: normal saline 500ml IV soln 500 ML IV ONE (11:16)
--- NOTE | 2025-09-06 13:07 | RADIOLOGY REPORT ---
EXAM: DI CHEST,SINGLE VIEW Indication: pain Technique: Single frontal view of the chest was obtained Comparison: DI CHEST,SINGLE VIEW on DOS: 09/04/25, CHEST,SINGLE VIEW on DOS: 09/12/22, CHEST,SINGLE VIEW on DOS: 09/11/22, CHEST,SINGLE VIEW on DOS: 09/10/22, CHEST,SINGLE VIEW on DOS: 09/09/22 FINDINGS: Lines and Tubes: None Lungs: No focal consolidation. Pleura: No effusion. No pneumothorax. Cardiomediastinal contours: Unremarkable Bones: No acute osseous abnormality. IMPRESSION: No acute cardiopulmonary disease.
--- NOTE | 2025-09-06 13:29 | RADIOLOGY REPORT ---
C-ARM FLUOROSCOPY: PROCEDURE: ORIF left hip FLUOROSCOPY TIME: 67.5 sec DAP: 15.30 mgy FINDINGS: Spot intraoperative C arm radiographs demonstrating ORIF left hip. IMPRESSION: Please refer to surgical report for detailed findings.
--- NOTE | 2025-09-06 15:52 | PROGRESS NOTE- Residence ---
Progress Note - Resident Providers to CC Resident Creating Document: JASON TORRES RES ~ Antibiotic Timeout Antibiotic Ordered?: No Subjective Patient was seen and examined at the bedside today. Status post intramedullary fracture nail with a hip compression screw for open reduction internal fixation POD #2 Hemoglobin dropped to 6.7, 1 unit of blood transfusion done. Patient had an episode of hypotension likely secondary to blood loss anemia, 500 mL of NS bolus given. Patient also developed acute hypoxemic respiratory failure, on 4 L oxygen likely secondary to CHF, one dose of Lasix 40 mg given. Objective Vital Signs Date Time Temp Pulse Resp B/P (MAP) Pulse Ox O2 Delivery O2 Flow Rate FiO2 09/06/25 15:17 98.2 90 18 111/52 09/06/25 11:00 93 Room Air 09/05/25 10:09 2.0 09/03/25 19:00 21 Result Diagram: 09/06/25 0519 09/06/25 0519 Awake , alert, and oriented x4 appears comfortable. HEENT: Atraumatic, normocephalic, EOMI, anicteric sclera ; pink conjunctiva Neck: Trachea midline. Supple, full range of motion, no JVD Cardiac: Regular rhythm, regular rate with no murmurs all over the precordium. Respiratory: Basal crackles heard. Gastrointestinal: Abdomen symmetric, non-distended, soft, non-tender, normal bowel sounds x4 quadrant, normoactive, no hepatosplenomegaly Musculoskeletal: No pedal edema, no cyanosis, peripheral pulses felt Neurological: Mental status exam: alert and consciousness, orientation, memory, speech No focal neurological deficits Left. Left lower extremity status post open reduction internal fixation. Skin: Warm and dry Coagulation Studies Laboratory Tests Test 09/03/25 16:22 Prothrombin Time 10.8 SECONDS (9.0-12.0) INR International Normalized Ratio 1.1 INR Coagulation Comments Plan Plan Assessment This is an 79-year-old female with a history of hypertension, hyperlipidemia, diabetes mellitus, peripheral neuropathy came to the ER acetazolamide level fall with a left intertrochanteric hip fracture. Dr. Gaona has been consulted, patient will be taken for surgery tomorrow. Plan Ground level fall Left intertrochanteric femur fracture s/p open reduction internal fixation by Dr. Alvarado on 09/04/2025, POD2 Pelvic CT showed left intertrochanteric femur fracture. Pain management-morphine p.r.n. , tramadol p.r.n. Regular diet initiated, no nausea or vomiting. Patient had a bowel movement. Acute blood loss anemia Hemoglobin dropped from 10.0-6.7. 1 unit of PRBC transfused. No signs of hematoma on examination. Iron panel low iron, high TIBC, low % saturation, ferritin 17 Started on oral iron supplementation. Repeat H&H in 5 hours, Blood transfusion if HGB <7. Acute hypoxemic respiratory failure Likely secondary to CHF with preserved ejection fraction Patient is on 4 L of oxygen with nasal cannula ProBNP 2392 Echocardiogram showed normal wall size and thickness, normal systolic function, ejection fraction 65-70%, RVSP 79 Chest x-ray shows pulmonary congestion One dose of Lasix 40 mg given after the blood transfusion. Hypotension likely secondary to anemia Patient had an episode of hypotension with blood pressure in 80s 1 unit of 500 mL NS bolus given Hyperkalemia- improved Mild TIBURCIO likely secondary to renal tubular stasis Creatinine 1.23 Follow up with repeat labs. Type 2 diabetes mellitus Hypertension Hyperlipidemia A1c 6.3 Home medication lisinopril as the blood pressure is in the borderline normal range. Code status: Full code DVT prophylaxis: Heparin Diet: Regular diet. Disposition: Continue to monitor hemoglobin Jason Torres M.D PGY2 Date of Service: Sep 06, 2025 Billing Provider: KIAH APARICIO MD Common Visit Codes: [id number] INP/OBS CARE(HIGH) JASON TORRES, RES Sep 06, 2025 15:52 KIAH APARICIO MD Sep 07, 2025 08:08
[2025-09-06 17:52] LABS: MEAN PLATELET VOLUME 8.1 FL (7.4-10.4); RED CELL DISTRIBUTION WIDTH 17.9 % (11.5-14.5)
[2025-09-06 21:57] LABS: MEAN PLATELET VOLUME 8.9 FL (7.4-10.4); RED CELL DISTRIBUTION WIDTH 18.3 % (11.5-14.5)
[2025-09-07 02:30] LABS: MEAN PLATELET VOLUME 8.9 FL (7.4-10.4); RED CELL DISTRIBUTION WIDTH 17.7 % (11.5-14.5)
[2025-09-07 02:50] LABS: CREATININE 1.38 MG/DL (0.40-0.90); TOTAL CARBON DIOXIDE 25.5 MMOL/L (24-32); eCRCL 30 ML/MIN; eGFR 37 ML/MIN
[2025-09-07 06:00] VITALS: BP 105/53; PULSE 82; RESP 14; TEMP 98.3; O2SAT 93
[2025-09-07 10:00] VITALS: BP 112/55; PULSE 87; RESP 16; TEMP 99.8; O2SAT 95
[2025-09-07 10:59] VITALS: RESP 16; O2SAT 95
--- NOTE | 2025-09-07 15:48 | PROGRESS NOTE- Residence ---
Progress Note - Resident Providers to CC Resident Creating Document: LAMINE AUUGSTIN RES ~ Antibiotic Timeout Antibiotic Ordered?: No Subjective Patient was seen and examined at the bedside today. Status post intramedullary fracture nail with a hip compression screw for open reduction internal fixation POD #3 No Overnight events reported,Yesterday patient had a bowel movement after Bowel Regimen. According to patient she usually have Bowel movements every 4 days. Objective Vital Signs Date Time Temp Pulse Resp B/P (MAP) Pulse Ox O2 Delivery O2 Flow Rate FiO2 09/07/25 11:15 16 09/07/25 10:59 95 Room Air 09/07/25 10:00 99.8 87 112/55 (74) 09/05/25 10:09 2.0 09/03/25 19:00 21 Result Diagram: 09/07/25 0205 09/07/25 0205 Awake , alert, and oriented x4 appears comfortable. HEENT: Atraumatic, normocephalic, EOMI, anicteric sclera ; pink conjunctiva Neck: Trachea midline. Supple, full range of motion, no JVD Cardiac: Regular rhythm, regular rate with no murmurs all over the precordium. Respiratory: Basal crackles heard. Gastrointestinal: Abdomen symmetric, non-distended, soft, non-tender, normal bowel sounds x4 quadrant, normoactive, no hepatosplenomegaly Musculoskeletal: No pedal edema, no cyanosis, peripheral pulses felt Neurological: Mental status exam: alert and consciousness, orientation, memory, speech No focal neurological deficits Skin: Warm and dry Coagulation Studies Laboratory Tests Test 09/03/25 16:22 Prothrombin Time 10.8 SECONDS (9.0-12.0) INR International Normalized Ratio 1.1 INR Coagulation Comments Advance Care Planning Advanced Care plannin - 30 Minutes Assessment Assessment This is an 79-year-old female with a history of hypertension, hyperlipidemia, diabetes mellitus, peripheral neuropathy came to the ER Mechanical Ground level fall with a left intertrochanteric hip fracture S/P open reduction internal fixation by Dr. Alvarado on 09/04/2025 POD-3. Plan Plan Mechanical Ground level fall Left intertrochanteric femur fracture s/p open reduction internal fixation by Dr. Alvarado on 09/04/2025, POD3 Pelvic CT showed left intertrochanteric femur fracture. Pain management-morphine p.r.n. , tramadol p.r.n. Regular diet initiated and Patient is tollerating well, no nausea or vomiting. Patient had a bowel movement yesterday after bowel regimen Acute blood loss anemia Hemoglobin dropped from 10.0-6.7. 1 unit of PRBC transfused.. Iron panel low iron, high TIBC, low % saturation, ferritin 17 Started on oral iron supplementation. Today H&H-7.5/23.0 Blood transfusion if HGB <7. Acute hypoxemic respiratory failure Likely secondary to CHF with preserved ejection fraction Today patient is on room air maintaining saturation of 95 % ProBNP 2392 Echocardiogram showed normal wall size and thickness, normal systolic function, ejection fraction 65-70%, RVSP 79 Chest x-ray shows pulmonary congestion One dose of Lasix 40 mg given after the blood transfusion. Patient is currently on IV Lasix 20 mg daily Hypotension likely secondary to anemia Patient had an episode of hypotension with blood pressure in 80s Received 500 mL bolus yesterday Today his blood pressure is running at 112/55 Hyperkalemia- improved Mild TIBURCIO likely secondary to renal tubular stasis Creatinine 1.38 Follow up with repeat labs. Type 2 diabetes mellitus Hypertension Hyperlipidemia A1c 6.3 Patient is currently maintaining soft blood pressure reading Code status: Full code DVT prophylaxis: Heparin Diet: Regular diet. Disposition: Continue to monitor hemoglobin, PT recommended post-acute care Lamine Augustin PGY1-Internal Medicine Resident Date of Service: Sep 07, 2025 Billing Provider: KIAH APARICIO MD Common Visit Codes: [id number] INP/OBS CARE(HIGH) LAMINE AUGUSTIN, ADALI Sep 07, 2025 15:48 KIAH APARICIO MD Sep 08, 2025 06:47
[2025-09-07 18:00] VITALS: BP 110/44; PULSE 68; RESP 16; TEMP 98.8; O2SAT 90
[2025-09-07 19:55] VITALS: RESP 16; O2SAT 92
[2025-09-07 22:00] VITALS: BP 99/50; PULSE 84; RESP 16; TEMP 98.7; O2SAT 92
[2025-09-08 05:14] LABS: MEAN PLATELET VOLUME 9.0 FL (7.4-10.4); RED CELL DISTRIBUTION WIDTH 18.3 % (11.5-14.5)
[2025-09-08 05:30] LABS: CREATININE 1.34 MG/DL (0.40-0.90); TOTAL CARBON DIOXIDE 28.5 MMOL/L (24-32); eCRCL 31 ML/MIN; eGFR 38 ML/MIN
[2025-09-08 06:00] VITALS: BP 114/50; PULSE 81; RESP 20; TEMP 97.9; O2SAT 97
[2025-09-08 10:00] VITALS: BP 105/54; PULSE 87; RESP 20; TEMP 97.4; O2SAT 100
[2025-09-08 14:33] VITALS: RESP 19
[2025-09-08] MEDS ORDERED: GLUCERNA THERAPEUTIC NUTRITION 237mL bottle PO SCH (17:30)
--- NOTE | 2025-09-08 19:13 | DISCHARGE SUMMARY-Residence ---
Discharge Summary Providers to CC Resident Creating Document: LAMINE AUGUSTIN, RES ~ Discharge Summary Admission Diagnosis: Left intertrochanteric hip fracture two part Hospital Course DATE OF ADMISSION: 09/03/2025 DATE OF DISCHARGE: 09/08/2025 Discharge Diagnosis\Comment: Mechanical Ground level fall Left intertrochanteric femur fracture s/p open reduction internal fixation by Dr. Alvarado on 09/04/2025, Acute blood loss anemia Acute hypoxemic respiratory failure Likely secondary to CHF with preserved ejection fraction Hypotension likely secondary to anemia Hyperkalemia- improved Mild TIBURCIO likely secondary to renal tubular stasis Type 2 diabetes mellitus Hypertension Hyperlipidemia Operations\Procedures: Open reduction internal fixation of left intertrochanteric fracture Consultants: Dr. Alvarado-orthopedician Complications: None Condition on DC: Stable for transfer Discharge Summary: History of present illness The patient is an 79-year-old female with a history of hypertension, diabetes mellitus, hyperlipidemia, and peripheral neuropathy who presented to the ER after a ground-level fall. She reports tripping on the last stair while visiting a friends house, resulting in severe left leg pain and inability to bear weight. She did not lose consciousness but struck her head during the fall. She denies chest pain, palpitations, dizziness, fever, gastrointestinal symptoms, or urinary complaints and is not on anticoagulants. She attributes the fall to neuropathy-related numbness in her feet. Hospital course The patient, an 79-year-old female with hypertension, diabetes, hyperlipidemia, and peripheral neuropathy, presented after a ground-level fall resulting in a left intertrochanteric fracture. She underwent open reduction and internal fixation by Dr. Alvarado, with pain managed using morphine. Initial hyperkalemia was treated with Kayexalate. Subsequently, hemoglobin dropped from 10 to 6.7 despite oral iron therapy, requiring one unit of PRBC. During transfusion, she developed acute hypoxemic respiratory failure with pulmonary congestion; BNP was 2392, echo showed LVEF 6570% and RVSP 79 mmHg, and chest X-ray confirmed congestion. She received IV Lasix and improved clinically, with hemoglobin rising to 7.5 and oxygen saturation stable at 95% on room air. Bowel function returned, pain was controlled with morphine and tramadol, and PT recommended post-acute care. She was discharged to [facility] in stable condition. Vital Signs Date Time Temp Pulse Resp B/P (MAP) Pulse Ox O2 Delivery O2 Flow Rate FiO2 09/08/25 14:33 19 09/08/25 10:00 97.4 87 105/54 (71) 100 Room Air 09/08/25 05:59 94 09/05/25 10:09 2.0 Laboratory Tests Test 09/06/25 21:01 09/06/25 21:28 09/07/25 02:05 09/07/25 07:39 Glucometer 152 mg/dl 123 mg/dl White Blood Count 5.8 X10'3 5.5 X10'3 Red Blood Count 3.01 X10'6 3.09 X10'6 Hemoglobin 7.4 g/dl 7.5 g/dl Hematocrit 22.0 % 23.0 % Mean Corpuscular Volume 73.3 FL 74.3 FL Mean Corpuscular Hemoglobin 24.7 PG 24.1 PG Mean Corpuscular Hemoglobin Concent 33.6 g/dL 32.5 g/dL Red Cell Distribution Width 18.3 % 17.7 % Platelet Count 133 X10'3 146 X10'3 Mean Platelet Volume 8.9 FL 8.9 FL Hematology Comments Neutrophils (%) (Auto) 69.8 % Lymphocytes (%) (Auto) 13.5 % Monocytes (%) (Auto) 11.8 % Eosinophils (%) (Auto) 4.3 % Basophils (%) (Auto) 0.6 % Neutrophils # (Auto) 3.8 X10'3 Lymphocytes # (Auto) 0.7 X10'3 Monocytes # (Auto) 0.7 X10'3 Eosinophils # (Auto) 0.2 X10'3 Basophils # (Auto) 0.0 X10'3 CBC Comment Sodium Level 139 MMOL/L Potassium Level 4.2 MMOL/L Chloride Level 105 MMOL/L Carbon Dioxide Level 25.5 MMOL/L Anion Gap 9 Blood Urea Nitrogen 50 MG/DL Creatinine 1.38 MG/DL Estimated GFR/1.73 m2 37 ML/MIN BUN/Creatinine Ratio 36.2 Glucose Level 131 MG/DL Calcium Level 7.5 MG/DL Magnesium Level 1.9 MG/DL Albumin 2.4 G/DL Chemistry Comments Test 09/07/25 12:10 09/07/25 17:28 09/07/25 20:48 09/08/25 04:15 Glucometer 153 mg/dl 174 mg/dl 150 mg/dl White Blood Count 5.1 X10'3 Red Blood Count 3.14 X10'6 Hemoglobin 7.7 g/dl Hematocrit 23.4 % Mean Corpuscular Volume 74.6 FL Mean Corpuscular Hemoglobin 24.5 PG Mean Corpuscular Hemoglobin Concent 32.9 g/dL Red Cell Distribution Width 18.3 % Platelet Count 166 X10'3 Mean Platelet Volume 9.0 FL Neutrophils (%) (Auto) 66.3 % Lymphocytes (%) (Auto) 15.1 % Monocytes (%) (Auto) 12.7 % Eosinophils (%) (Auto) 5.6 % Basophils (%) (Auto) 0.3 % Neutrophils # (Auto) 3.4 X10'3 Lymphocytes # (Auto) 0.8 X10'3 Monocytes # (Auto) 0.6 X10'3 Eosinophils # (Auto) 0.3 X10'3 Basophils # (Auto) 0.0 X10'3 CBC Comment Sodium Level 139 MMOL/L Potassium Level 4.9 MMOL/L Chloride Level 105 MMOL/L Carbon Dioxide Level 28.5 MMOL/L Anion Gap 6 Blood Urea Nitrogen 52 MG/DL Creatinine 1.34 MG/DL Estimated GFR/1.73 m2 38 ML/MIN BUN/Creatinine Ratio 38.8 Glucose Level 120 MG/DL Calcium Level 8.1 MG/DL Albumin 2.3 G/DL Chemistry Comments Test 09/08/25 07:41 09/08/25 12:17 Glucometer 119 mg/dl 119 mg/dl Physical examination Awake , alert, and oriented x4 appears comfortable. HEENT: Atraumatic, normocephalic, EOMI, anicteric sclera ; pink conjunctiva Neck: Trachea midline. Supple, full range of motion, no JVD Cardiac: Regular rhythm, regular rate with no murmurs all over the precordium. Respiratory: Normal breath sounds are heard on auscultation Gastrointestinal: Abdomen symmetric, non-distended, soft, non-tender, normal bowel sounds x4 quadrant, normoactive, no hepatosplenomegaly Musculoskeletal: No pedal edema, no cyanosis, peripheral pulses felt Neurological: Mental status exam: alert and consciousness, orientation, memory, speech No focal neurological deficits Skin: Warm and dry Imaging at hospital Head CT-No acute intracranial abnormality. Pelvic CT-Mildly displaced acute traumatic fracture of the left intertrochanteric femur. Guided fluoroscopy-Spot intraoperative C arm radiographs demonstrating ORIF left hip. Echocardiogram-LVEF 65-70%, RVSP 79 mmHg Chest x-ray-No acute disease. Chest x-ray-No acute cardiopulmonary disease. Discharge instructions- 1)Follow up with PCP and Dr. Alvarado in a week 2)Repeat CMP in 2 days because of mildly increased in creatinine from Lasix- baseline creatinine-1.19 3) continue tramadol 50 mg p.o. q.8h tapered the dose accordingly 4) DVT prophylaxis until fully ambulatory 5) repeat iron studies in 3 months Discharge medications continue tramadol 50 mg p.o. q.8h and taper dose accordingly DVT prophylaxis with heparin subQ until fully ambulatory *Problems/Diagnosis: (1) Intertrochanteric fracture of femur (2) Hip pain Status: Acute Total Time Spent on D/C: Up to 30 Minutes Date of Service: Sep 08, 2025 Billing Provider: KIAH APARICIO MD Common Visit Codes: [id number] DISCH DAY >30min LAMINE AUGUSTIN, RES Sep 08, 2025 19:08 KIAH APARICIO MD Sep 09, 2025 07:14
== END 2025-09-08 15:07 | DRG 480 ==
LOC: ER 15:17 → ED HOLD 16:30 → SUR 3N 17:22
PROVIDERS: ADMIT Internal Medicine; ATTEND Internal Medicine
PROC: BW2G1ZZ Computerized Tomography (CT Scan) of Pelvic Region using Low Osmolar Contrast (ICD-10-PCS; 2025-09-03)
PROC: 0QS736Z Reposition Left Upper Femur with Intramedullary Internal Fixation Device, Percutaneous Approach (ICD-10-PCS; principal; 2025-09-04 07:03)
PROC: 30233N1 Transfusion of Nonautologous Red Blood Cells into Peripheral Vein, Percutaneous Approach (ICD-10-PCS; 2025-09-06)
DX: S72.142A Displaced intertrochanteric fracture of left femur, initial encounter for closed fracture (principal); I50.33 Acute on chronic diastolic (congestive) heart failure; J96.01 Acute respiratory failure with hypoxia; N17.0 Acute kidney failure with tubular necrosis; D62 Acute posthemorrhagic anemia; S09.8XXA Other specified injuries of head, initial encounter; I11.0 Hypertensive heart disease with heart failure; E11.42 Type 2 diabetes mellitus with diabetic polyneuropathy; D50.8 Other iron deficiency anemias; E87.5 Hyperkalemia; I95.9 Hypotension, unspecified; E78.00 Pure hypercholesterolemia, unspecified; W10.8XXA Fall (on) (from) other stairs and steps, initial encounter; Y93.89 Activity, other specified; Y92.89 Other specified places as the place of occurrence of the external cause; Y99.8 Other external cause status; Z88.0 Allergy status to penicillin; Z98.84 Bariatric surgery status; Z79.84 Long term (current) use of oral hypoglycemic drugs; Z79.899 Other long term (current) drug therapy
CPT/HCPCS: 36415; 36430; 71045; 71250; 72192; 73502; 76000; 80048; 80053; 80061; 82272; 82728; 82948; 83036; 83540; 83550; 83735; 83880; 84100; 84132; 85007; 85025; 85027; 85610; 86870; 86885; 86900; 86901; 86902; 86905; 86922; 87081; 93005; 93306; 96361; 96374; 96375; 96376; 97110; 97116; 97161; 97530; 99285; A4314; A4615; A4618; A5200; A6212; A6213; A6454; A7000; C1713; G0378; J0131; J0690; J1644; J1938; J2270; J2405; J2704; J3010; J3490; J7030; J7040; J7120; P9016